=== PATIENT | female | born 1975 | race Two or more races ===

== ENCOUNTER 2018-01-10 10:30 | Emergency (ER) | payer MEDICAID ==
[~2018-01-10] VITALS: Ht 157.5 cm; Wt 64.4 kg
[~2018-01-10 10:30] MED LIST: NITROFURANTOIN100 M2 ORAL
[2018-01-10 11:29] LABS: APPEARANCE,URINE CLEAR; BILIRUBIN, URINE NEGATIVE (NEGATIVE); COLOR,URINE PALE YELLOW; GLUCOSE, URINE (UA) NEGATIVE (NEGATIVE); KETONES,URINE NEGATIVE (NEGATIVE); LEUKOCYTE ESTERASE ,URINE 1+ (NEGATIVE); NITRITE,URINE NEGATIVE (NEGATIVE); PH,URINE 7 (4.5-8.0); PROTEIN,URINE NEGATIVE (NEGATIVE); UROBILINOGEN,URINE NORMAL MG/DL (0.0-1.0)
--- NOTE | 2018-01-10 11:56 | Emergency Room Report ---
History of Present Illness General Chief Complaint: Lower Back Pain or Injury Source: Patient Present Illness HPI 42-year-old female with prediabetes and asthma, presents with 2 weeks of cough, she reports is been dry and nonproductive, as well as low back pain has been off and on for the past few weeks as well. She does report dysuria, no hematuria, she reports no radiation of her back pain, and she reports she is not trying medications for it. 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 Allergies: Coded Allergies: No Known Allergies (Unverified , 06/28/13) Patient History Past Medical History: see triage record Last Menstrual Period: 12/17/17 Now: No Reviewed Nursing Documentation: PMH: Agreed; PSxH: Agreed Nursing Documentation-PMH Past Medical History: No Stated History Review of Systems All Other Systems: negative except mentioned in HPI Physical Exam Vital Signs Date Time Temp Pulse Resp B/P (MAP) Pulse Ox O2 Delivery O2 Flow Rate FiO2 01/10/18 10:38 98.1 80 18 122/73 96 Room Air 98.1 Sp02 EP Interpretation: reviewed, normal General Appearance: no apparent distress, alert, non-toxic Head: normocephalic Eyes: bilateral eye normal inspection, bilateral eye PERRL, bilateral eye EOMI ENT: normal ENT inspection, hearing grossly normal, normal pharynx, no angioedema, normal voice, moist mucus membranes Neck: normal inspection, full range of motion, supple, supple/symm/no masses Respiratory: chest non-tender, lungs clear, normal breath sounds, chest symmetrical, palpation of chest normal Cardiovascular #1: normal peripheral pulses, regular rate, rhythm Cardiovascular #2: 2+ radial (R), 2+ radial (L), 2+ dorsalis pedis (R), 2+ dorsalis pedis (L) Gastrointestinal: normal inspection, non tender, soft, no mass, no guarding, no rebound Rectal: deferred Genitourinary: normal inspection, no CVA tenderness Musculoskeletal: back normal, gait/station normal, normal range of motion, non- tender, no calf tenderness, Virgil's Sign negative, other - No bony tenderness or step-offs throughout cervical, thoracic, lumbar spine Neurologic: alert, responsive, 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 Follow-up with PMD in the next 2-3 days. Chest X-Ray Diagnostic Results Chest X-Ray Diagnostic Results : Chest X-Ray Ordered: Yes # of Views/Limited/Complete: 1 View Indication: Other EP Interpretation: Yes Interpretation: no consolidation, no effusion, no pneumothorax, no acute cardiopulmonary disease Impression: No acute disease Electronically Signed by: Phyllis Mohr MD Other X-Ray Diagnostic Results Other X-Ray Diagnostic Results : X-Ray ordered: L-spine # of Views/Limited Vs Complete: 3 View Indication: Pain EP Interpretation: Yes Interpretation: no dislocation, no soft tissue swelling, no fractures, nonspecific bowel gas Impression: No acute disease Electronically Signed by: Phyllis Mohr MD Last Vital Signs Date Time Temp Pulse Resp B/P (MAP) Pulse Ox O2 Delivery O2 Flow Rate FiO2 01/10/18 11:31 98.1 01/10/18 10:38 80 18 122/73 96 Room Air Disposition: HOME, SELF-CARE Condition: Stable Referrals: NON PHYSICIAN (PCP) PHYLLIS MOHR M.D Jan 10, 2018 11:56
[2018-01-10] MEDS ORDERED: IBUPROFEN600 MG ORAL (12:35)
[2018-01-10] MEDS ORDERED: CYCLOBENZAPRINE10 MG ORAL (12:35)
[2018-01-10] MEDS ORDERED: NITROFURANTOIN100 M2 ORAL (12:35)
[2018-01-10 12:46] VITALS: BP 114/59
[2018-01-10 12:47] VITALS: BP 122/73
--- NOTE | 2018-01-10 16:44 | Diagnostic Imaging Report ---
Indication: Cough Technique: One view of the chest Comparison: none Findings: Lungs and pleural spaces are clear. Heart size is normal Impression: No acute process
--- NOTE | 2018-01-10 16:45 | Diagnostic Imaging Report ---
Indication: Back pain Technique: 3 views of the lumbar spine Comparison: None Findings: Vertebral body heights and disc spaces are preserved. Pedicles are intact. Sacral arches are preserved. Sacroiliac joint spaces are preserved. There is an intrauterine device Impression: No acute process
== END 2018-01-10 12:48 | disposition home or self-care (01) ==
LOC: EMR 11:12
DX: N39.0 Urinary tract infection, site not specified (principal); M54.5 Low back pain; R05 Cough
CPT/HCPCS: 71045; 72020; 81003; 81025; 99284